=== PATIENT | female | born 1940 | race Caucasian/White ===

== ENCOUNTER 2024-05-05 10:07 | Outpatient (REF) | payer OTHER, SELFPAY ==
[2024-05-05 13:33] LABS: Urine Cytology See Pathology rpt
== END 2024-05-05 10:08 | disposition home or self-care (01) ==
LOC: HO.LNP 10:07
PROVIDERS: PCP Internal Medicine; Visit Provider Nurse Practitioner Family
DX: R31.9 Hematuria, unspecified (principal)
CPT/HCPCS: 81003; 88112

== ENCOUNTER 2024-05-05 10:07 | Outpatient (AMB) | payer OTHER, SELFPAY ==
[2024-05-05 11:06] VITALS: BP 142/80; PULSE 62; TEMP 36.4; O2SAT 98; BMI 27.4
--- NOTE | 2024-05-05 11:06 | MHC.OFFWIV ---
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 Intake Note: Pt is here today c/o blood in urine and pain upon urination Allergies amoxicillin Adverse Reaction (Verified 05/05/24 11:31) unknown digoxin Adverse Reaction (Verified 05/05/24 11:31) unknown pravastatin Adverse Reaction (Verified 05/05/24 11:31) Muscle Pain dilitiazem Allergy (Uncoded 05/05/24 11:31) pareasthesis atorvastatin Adverse Reaction (Uncoded 05/05/24 11:31) unknown coumadin Adverse Reaction (Uncoded 05/05/24 11:31) numbness meformin Adverse Reaction (Uncoded 05/05/24 11:31) heart palpitation metformin Adverse Reaction (Uncoded 05/05/24 11:31) palptiations Medication List - Last Reconciled 05/05/24 by Dayami Narayan, BASTING MARKER- insulin detemir U-100 (Levemir FlexPen) units subcut repaglinide mg PO HPI HPI Comments History of Present Illness Details 84-year-old female with insulin dependent diabetes, 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 Reports that she noticed blood in her urine several weeks ago. It did go away on its own. However a few days ago she developed recurrent bleeding and reports that it was worse than the 1st time. She has even noted blood on her underwear. This is associated with lower abdominal cramping. She denies tobacco use. Exam Awake alert oriented, no acute distress Speaking in full sentences Plan Review urinalysis results with her today which is positive for blood and glucose. Reports that she is active with endocrinology in her last A1c was 7.3%. She reports tolerance and compliance with her medications. She does wear CGM. Unfortunately the reader is not with her today so I can not review any further. I explained to her that painless hematuria especially in the setting of a history of cancer is quite concerning. I am going to send her urinalysis out for cytology. She does need to follow up with her primary care going forward. I recommend a referral to Urology however this decision will ultimately be referred to the primary care physician. I will be sure that the cytology results are also CC to the primary care for follow up. I have asked the patient to call the primary care office on Tuesday morning to schedule a close follow up regarding this matter. 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 This note is constructed using voice recognition software. While every effort has been made to ensure accuracy in gas usage meter clerk, still errors may have been included Sometimes, these errors may affect the content or meaning of the given sentence . Total time spent caring for the patient today was 30 minutes. This includes time spent before the visit reviewing the chart, time spent during the visit, and time spent after the visit on documentation Physical Exam Vital Signs: Last Vital Signs Temp 97.6 F 05/05/24 11:06 Pulse 62 05/05/24 11:06 BP 142/80 H 05/05/24 11:06 Pulse Ox 98 05/05/24 11:06 Oxygen Delivery Method Room Air 05/05/24 11:06 BMI result Body Mass Index 27.4 Results AMB Urinalysis, Automated UA Leukoctes 0 Binh/uL Last Edit by Annel May CMA on 05/05/24 11:19 UA Nitrite Negative Last Edit by Annel May, KAYLEY on 05/05/24 11:19 UA Urobilinogen 0.2 mg/dL Last Edit by Annel May, HOTEL OR MOTEL ROOM SERVICE SUPERVISOR on 05/05/24 11:19 UA Protein 15 mg/dL Last Edit by Annel May, KAYLEY on 05/05/24 11:19 UA pH 6.0 Last Edit by Annel May, KAYLEY on 05/05/24 11:19 UA Blood 80 Carlos/uL Last Edit by Annel May, KAYLEY on 05/05/24 11:19 UA Specific Solon 1.025 Last Edit by Annel May, KAYLEY on 05/05/24 11:19 UA Ketone Last Edit by Annel May, KAYLEY on 05/05/24 11:19 UA Bilirubin 0 mg/dL Last Edit by Annel May, HOTEL OR MOTEL ROOM SERVICE SUPERVISOR on 05/05/24 11:19 UA Glucose 1000 mg/dL Last Edit by Annel May CMA on 05/05/24 11:19 Results Reviewed Results Reviewed: Laboratory Last Values Urine pH (Auto) 6.0 05/05/24 11:16 Specific Solon (Auto) 1.025 05/05/24 11:16 Urine Protein (Auto) 15 mg/dL 05/05/24 11:16 Glucose (UA)(Auto) 1000 mg/dL 05/05/24 11:16 Urine Blood (Auto) 80 Carlos/uL 05/05/24 11:16 Urine Nitrite (Auto) Negative 05/05/24 11:16 Urine Bilirubin (Auto) 0 mg/dL 05/05/24 11:16 Urine Urobilinogen (Auto) 0.2 mg/dL 05/05/24 11:16 Leukocyte Esterase (Auto) 0 Binh/uL 05/05/24 11:16 Assessment & Plan Assessment & Plan (1) Painless hematuria: Code(s): R31.9 - Hematuria, unspecified Plan: . (2) Glucosuria: Code(s): R81 - Glycosuria Plan: . 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 Orders: Orders AMB Urinalysis Automated Today Z13.9 - Encounter for screening, unspecified Urine Cytology Today R31.9 - Hematuria, unspecified Patient Instructions: Recommend follow up with primary care physician. May need referral to a urologist. Coding Level of Care Code Est Pt Level 4 (83940) Diagnoses Painless hematuria R31.9 Glucosuria R81 Diabetes mellitus with insulin therapy E11.9; Z79.4
== END 2024-05-05 11:57 | disposition home or self-care (01) ==
PROVIDERS: PCP Internal Medicine; Visit Provider Nurse Practitioner Family
DX: R31.9 Hematuria, unspecified (principal); R81 Glycosuria; E11.9 Type 2 diabetes mellitus without complications; Z79.4 Long term (current) use of insulin; Z13.9 Encounter for screening, unspecified